=== PATIENT | female | born 1945 | race Caucasian/White ===

== ENCOUNTER 2019-04-29 07:30 | Inpatient (IN) | payer MEDICARE ==
--- NOTE | 2019-04-24 16:10 | HP ---
HISTORY AND PHYSICAL: DATE OF ADMISSION/SURGERY: 04/29/19 PROVIDER: Dr. Kezia Cotter.* (DICTATED BY JULIA CARROLL) HISTORY OF PRESENT ILLNESS: Ms. Buenrostro is a 74-year-old female scheduled for April right total knee arthroplasty. Today she reports 6/10 pain in the left knee. She states that she exacerbated her pain while circuit training in [place]. She has then been noticing a sharp stabbing pain along the posterior medial joint line. This pain is increased with prolonged ambulation, twisting, pivoting, and squatting. She has throbbing pain at night. There is swelling in the knee. She has failed conservative management with meloxicam, which does not help her pain. She would like to proceed with her total knee arthroplasty, but would like this worked up today. PAST MEDICAL HISTORY: 1. Hypertension. 2. Hypercholesterolemia. PAST SURGICAL HISTORY: Bilateral ulnar shortening surgery. MEDICATIONS: 1. Shingrix 50 mcg intramuscular one time, then repeat in 4 months. 2. Losartan potassium 25 mg, take 2 tablets by mouth once daily. 3. Simvastatin 20 mg once a day. 4. Fish oil daily. 5. Calcium. 6. Naproxen p.r.n. ALLERGIES: ADHESIVE TAPE causes itching. FAMILY HISTORY: Diabetes and cancer. SOCIAL HISTORY: The patient lives with her staff. She is retired. No recreational drugs or tobacco use. Six alcoholic beverages per week. Normally very active and an independent ambulator. REVIEW OF SYSTEMS: General: The patient denies any fevers, chills, or night sweats. No known anesthesia problems. HEENT: The patient denies any headaches or lightheadedness. Cardiothoracic: The patient denies any chest pain or heart palpitations. Pulmonary: The patient denies any shortness of breath with exertion or chronic cough. GI: The patient denies any nausea, vomiting, diarrhea, or constipation. : The patient denies any nocturia, urinary frequency, or urgency. Musculoskeletal: The patient denies any chronic or new back pain or fractures. Neuro: The patient denies any paresthesias, numbness, or seizures. Integumentary: The patient denies any abrasions, lesions , rashes, lumps. PHYSICAL EXAMINATION GENERAL: The patient is alert and oriented x3. Appropriate mood and affect. Appropriate dress and hygiene. No acute distress. HEENT: Normocephalic, atraumatic. Hearing and vision are grossly intact. PULMONARY: Lungs are clear to auscultation bilaterally with no wheezes, rales, or rhonchi. CARDIO: Regular rate and rhythm. Normal S1 and S2. No appreciable S3 or S4. MUSCULOSKELETAL: Right lower extremity: The patient's skin is intact with no abrasions or open wounds. No erythema or ecchymosis present. She has moderate effusion about the knee joint. Tenderness along the medial joint line. 5 to 120 degrees of flexion at the knee with no varus or valgus instability, no anterior and posterior instability. She is neurovascularly intact distally. IMPRESSION: Right knee end-stage osteoarthritis. PLAN: 1. To the OR for a right total knee arthroplasty to be performed on 04/29/[address] Kezia Cotter. 2. The patient will follow up 10 to 14 days postoperatively for suture removal. 3. The risks and complications were reviewed with the patient and she understood. A signed consent can be found in the chart. JULIA CARROLL [id number]/[facility] #: [id number] PAULINE
[~2019-04-29 07:30] MED LIST: Buffered Lidocaine 1% SYRIN* 1 ML/SYRINGE INTRADERM ONE; Lactated Ringers 1000 ML Bag* 1,000 ML IV SCH; Tranexamic Acid 1,000 MG in NS 0.9% 50 ML* (outpatient use) IV SCH
[2019-04-29] MEDS ORDERED: ceFAZolin 2 GM in NS PREMIX(*) 2 GM/100 ML BAG IVPB ONE (11:38)
[2019-04-29] MEDS ORDERED: Midazolam* 1 MG/ML 5 ML VIAL (5 MG) ONE (12:27)
[2019-04-29] MEDS ORDERED: fentaNYL* 50 MCG/ML 2 ML VIAL (100 MCG VIAL) ONE (12:27)
[2019-04-29] MEDS ORDERED: ROPIVACAINE 5 MG/ML 30 ML BTL (0.5%) ONE ×2 (13:16→13:19)
[2019-04-29] MEDS ORDERED: Propofol* 10 MG/ML 20 ML BTL ONE (13:51)
[2019-04-29] MEDS ORDERED: EPHEDrine (Pressors)* 50 MG/ML VIAL ONE (14:19)
[2019-04-29] MEDS ORDERED: HYDROcodone/ACETAMIN 5-325 MG* 1 TAB PO PRN (15:31)
[2019-04-29] MEDS ORDERED: Naloxone* 0.4 MG/ML 1 ML VIAL IV PRN (15:31)
[2019-04-29] MEDS ORDERED: HYDROmorphone INJ1* 1 MG/ML SYRINGE IV PRN (15:31)
[2019-04-29] MEDS ORDERED: Ondansetron INJ* 2 MG/ML VIAL IV PRN ×2 (15:31→16:02)
[2019-04-29] MEDS ORDERED: Temazepam CAP* 15 MG PO PRN (16:02)
[2019-04-29] MEDS ORDERED: diPHENhydraMINE PO* 25 MG PO PRN (16:02)
[2019-04-29] MEDS ORDERED: diPHENhydraMINE IV* 50 MG/ML 1 ml VIAL (BENADRYL) IV PRN (16:02)
[2019-04-29] MEDS ORDERED: Morphine INJ* 2 MG/ML 1 ML SYRINGE (TWO MG - NEW SYRINGE VERSION) IV PRN (16:02)
[2019-04-29] MEDS ORDERED: Magnesium Hydroxide LIQ* 30 ML UDC PO PRN (16:02)
[2019-04-29] MEDS ORDERED: Polyethylene Glycol 3350* 17 GM PACKET PO PRN (16:02)
--- NOTE | 2019-04-29 17:54 | OP ---
Operative Report - Blank - Operative Report Date of Operation: 04/29/19 Note: GRETA KELLY 1945 Date of Surgery: 04/29/19 Kezia Cotter MD [employer] Custodian: Agata DUMONT did help throughout the procedure with preparation of the knee, wound retraction, manipulation of the knee, and wound closure. Anesthesiologist: Dr. krishna Anesthesia Type: Spinal Preoperative Diagnosis: Right severe degenerative osteoarthritis of the knee Postoperative Diagnosis: As above Procedure Performed: Right Total Knee Arthroplasty Tourniquet time: 39 minutes Complications: None Specimen: Bone and cartilage from the right knee joint sent to pathology. Hardware Used: Cemented Rangel [employer] Nephew total knee hardware was used - For the femur a size 5 right narrow legion posterior stabilized femoral component, for the tibia a size 3 right louise II tibial baseplate, for the insert a size 9mm 3-4 posterior stabilized articular polyethylene insert, and for the patella a size 29 3-peg all poly patella. Brief History/Indication: GRETA KELLY was known in clinic and had a history of severe right knee pain and swelling. She failed conservative treatment with anti-inflammatories, pain pills, intra-articular injections and physical therapy. She elected to undergo right total knee arthroplasty due to continued pain and decreased quality of life. Radiographs showed severe end stage osteoarthritis of the knee with bone on bone contact. Informed consent was obtained from the patient. She understood the risks of surgery included but were not limited to: bleeding, infection, damage to nearby structures, intraoperative fracture, nerve palsy, failure of the hardware, early loosening, knee stiffness or loss of motion, anesthesia complications, stroke, heart attack , blood clot and . She wished to proceed. Intra-Operative Findings: Intraoperatively the patient was noted to have severe loss of cartilage in all 3 compartments of the knee. Description of the Procedure: GRETA KELLY was identified in the preanesthesia unit. Her right knee was marked as the correct operative side. Informed consent was signed and placed in the chart. The patient was taken to the operating room and placed under anesthesia without complication. A paulino catheter was placed. A tourniquet was placed on the right thigh. The right lower extremity was prepped and draped in the usual sterile fashion. Preoperative time-out was made to correctly identify the patient, side and site. Appropriate intraoperative antibiotics were given within one hour of incision. Tourniquet was inflated. A midline incision was made and carried sharply down to the extensor mechanism. A new 10 blade was used to make a standard medial parapatellar arthrotomy. The patella was subluxed laterally. Electrocautery was used to dissect soft tissue off the superomedial tibia to the midsagittal plane. The knee was flexed up. The anterior horn of the lateral meniscus and the ACL were sharply incised. A drill was used to enter the distal femur. The intramedullary distal femoral cutting guide was pinned on the distal femur. The oscillating saw was used to make the distal femoral cut. The external rotation guide was pinned on the distal femur and the distal femur was sized to a size 5. The size 5 multi-cutting jig was pinned on the distal femur. The oscillating saw was used to make the appropriate 4 chamfer cuts. Next the PCL was completely released. The extramedullary tibial cutting guide was pinned on the proximal tibia and the oscillating saw was used to make the proximal tibial cut perpendicular to the mechanical axis of the tibia. The bone was carefully removed. The knee was brought out into full extension. The spacer block was placed and had excellent fit with the knee in full extension. The medial and lateral ligaments were well balanced. The flexion and extension gaps were well balanced. The knee was flexed up. Lamina information systems security developer was placed both medially and laterally. Any remaining meniscus was removed with electrocautery. Curved osteotome was used to remove any posterior osteophytes. The tibial tray and drop yessenia were placed and confirmed a satisfactory tibial cut. The size 5 right narrow femoral trial was impacted onto the distal femur. This trial had excellent fit and stability. The box for the posterior stabilized implant was prepared using a box cut osteotome and a reamer. Next a tibial tray trial and 9 mm insert trial was placed. The knee was taken through a range of motion and had full extension to 130 degrees of flexion. Patellofemoral tracking was satisfactory. The patella was inverted and sized to a size 29. Three peg holes were drilled through the size 29 drill guide. The trial patella was placed and the knee was taken through a range of motion. There was satisfactory patellofemoral tracking. All trials were removed. The tibia was subluxed anteriorly and sized to a size 3. The proximal tibial was prepared with a size 3 keel punch. All bony cut surfaces were irrigated with sterile saline and dried. Final implants were cemented into place starting with the tibia, followed by the femur, and last the patella. A 9 mm insert trial was placed and the knee was brought into full extension. Tourniquet was turned down and the knee was copiously irrigated with sterile saline. Electrocautery was used to obtain meticulous hemostasis. Once the cement had fully cured, the insert trial was removed. Any excess cement was removed from around the hardware and capsule. Final insert chosen was a 9 mm posterior stabilized Louise II articular insert size 3-4. Stability of the insert was checked and noted to be stable. The extensor mechanism was closed using number 1 vicryls. The rest of the incision was closed in a layered fashion using 0 and 2-0 vicryls. The skin was closed using 3-0 nylon suture. Sterile xeroform, 4x4s and webril were used to cover the incision. Umair wrap and cold pack were used to cover the dressings. The patients anesthesia was reversed without difficulty. She was taken to the PACU in stable condition. Intended weight-bearing will be as tolerated.
[2019-04-29] MEDS ORDERED: oxyCODONE/Acetamin 5/325 MG* TAB ONE (20:20)
[2019-04-29] MEDS: Lactated Ringers 1000 ML Bag* 1,000 ML IV SCH (20:22)
[2019-04-29] MEDS: oxyCODONE/Acetamin 5/325 MG* TAB PO PRN (20:22)
[2019-04-29] MEDS: Ondansetron ODT TAB* 4 MG PO PRN (21:28)
[2019-04-29] MEDS: Magnesium Hydroxide LIQ* 30 ML UDC PO SCH (21:29)
[2019-04-29] MEDS: Docusate CAP* 100 MG PO SCH (21:29)
[2019-04-29] MEDS: Acetaminophen TAB* 325 MG PO SCH (21:29)
[2019-04-29] MEDS: Losartan TAB* 25 MG PO SCH (22:23)
[2019-04-29] MEDS: ceFAZolin 1 GM ADVAN(*) 1 GM in NS 0.9% 50 ML* 50 ML IVPB SCH (22:23)
[2019-04-29] MEDS: Atorvastatin* 10 MG TAB PO SCH (22:23)
[2019-04-29] MEDS: oxyCODONE TAB* 5 MG TAB PO PRN (22:23)
[2019-04-30] MEDS: Cyclobenzaprine TAB* 10 MG PO PRN (00:59)
[2019-04-30] MEDS: oxyCODONE TAB* 5 MG TAB PO PRN ×4 (02:22→22:04)
[2019-04-30] MEDS: Acetaminophen TAB* 325 MG PO SCH ×3 (05:52→23:05)
[2019-04-30] MEDS: ceFAZolin 1 GM ADVAN(*) 1 GM in NS 0.9% 50 ML* 50 ML IVPB SCH ×2 (05:56→14:20)
[2019-04-30 06:04] LABS: Hematocrit 35 % (35-47); Hemoglobin 11.7 g/dL (12.0-16.0); Mean Platelet Volume 8.8 fL (7.4-10.4); Platelet Count 222 10^3/uL (150-450)
[2019-04-30 06:22] LABS: Calcium 8.2 mg/dL (8.6-10.3); EGFR African American 112.4 (>60); EGFR Non-African American 92.9 (>60); Potassium 3.9 mmol/L (3.5-5.0)
[2019-04-30] MEDS: Lactated Ringers 1000 ML Bag* 1,000 ML IV SCH (07:29)
[2019-04-30] MEDS: Ondansetron ODT TAB* 4 MG PO PRN (07:34)
[2019-04-30] MEDS: Magnesium Hydroxide LIQ* 30 ML UDC PO SCH ×2 (08:37→20:08)
[2019-04-30] MEDS: Docusate CAP* 100 MG PO SCH ×2 (08:39→20:08)
[2019-04-30] MEDS: oxyCODONE/Acetamin 5/325 MG* TAB PO PRN ×4 (08:39→23:57)
[2019-04-30] MEDS: Apixaban* 2.5 MG TAB PO SCH ×2 (08:39→20:08)
[2019-04-30] MEDS: Vitamin THERAPEUTIC TAB PO SCH (08:39)
[2019-04-30] MEDS ORDERED: Metoclopramide TAB* 10 MG PO PRN (09:38)
--- NOTE | 2019-04-30 10:56 | PN ---
Progress Note - Progress Note Date of Service: 04/30/19 Note: POD 1 s/p right TKA: patient working with PT and then in joint chair. She has pain with movement and was unsteady with PT despite 2 person assist. She has nausea that is uncontrolled with Zofran. She denies SOB, CP or dizziness. +DF/ PF with intact sensation and 2+ DP pulse. Patient encouraged to use pain medication in order to participate in PT. I will add Reglan for nausea. Continue pain management and we appreciate medicine's guidance. We will monitor and hope for d/c tomorrow.
[2019-04-30] MEDS ORDERED: Scopolamine 1.5 mg* PATCH TRANSDERM SCH (12:00)
[2019-04-30] MEDS: Losartan TAB* 25 MG PO SCH (20:07)
[2019-04-30] MEDS: Atorvastatin* 10 MG TAB PO SCH (20:08)
--- NOTE | 2019-04-30 21:13 | CONS ---
CC: Dr. Kezia Cotter [facility] MEDICINE CONSULTATION: DATE OF CONSULT: 04/30/19 REQUESTING PHYSICIAN ON CONSULT: Dr. Kezia Cotter. ATTENDING PHYSICIAN: Dr. Angela Alarcon. REASON FOR CONSULT: Co-medical management. HISTORY OF PRESENT ILLNESS: I will refer you to the history and physical by JULIA Horvath, for complete details, but in short, Ms. Buenrostro is a 74-year- old female with past medical history of hypertension and hyperlipidemia, who presented to [facility] [place] for an elective right total knee arthroplasty. She failed conservative management with pain medication and elected to proceed with surgery. The patient underwent a right total knee arthroplasty yesterday, tolerated the procedure well. This morning, the patient reports feeling generally well. She is having significant pain in the right knee up to 8/10 with movement and down to 3/10 at rest. Pain medications are helping. She does complain of nausea and is requesting a scopolamine patch as this has worked well for her in the past. Appetite is poor secondary to nausea and she did vomit dinner last night. Regarding her hypertension, the patient has been on losartan for quite some time, though within the last week, the dose was increased from 50 mg to 75 mg by the patient's primary care provider. She has been tolerating this new dose well without any concerns. PAST MEDICAL HISTORY: 1. Hypertension. 2. Hyperlipidemia. PAST SURGICAL HISTORY: Bilateral ulnar surgery. HOME MEDICATIONS: 1. Benadryl 25 mg p.o. at bedtime p.r.n. insomnia. 2. Losartan 75 mg p.o. at bedtime. 3. Multivitamin 1 tab p.o. at bedtime. 4. Simvastatin 20 mg p.o. at bedtime. 5. CoQ10 100 mg p.o. at bedtime. ALLERGIES: ADHESIVE TAPE. FAMILY HISTORY: Significant for diabetes and cancer. SOCIAL HISTORY: The patient denies any tobacco or recreational drug use. She reports approximately 6 alcoholic beverages per week. She lives at home with her , Edwin, who will be her surrogate decision maker in the event she is unable to make her own decisions. REVIEW OF SYSTEMS: Eleven-point review of systems was performed and all the pertinent positive and negative findings are in the HPI. All other systems are negative. PHYSICAL EXAM: Ms. Buenrostro is a well-developed, well-nourished, elderly white female, sitting in a chair, in no acute distress. She appears her stated age. Vitals Signs: Temp 98.0, heart rate 70, respiratory rate 16, oxygen saturation 90% on room air, blood pressure 152/67. HEENT: Head is atraumatic, normocephalic. Visual purcell are grossly intact. Extraocular movements are intact. Oral mucous membranes are moist. Neck: Trachea midline. Respiratory : Symmetrical chest expansion. No chest wall deformities. Lungs: Clear to auscultation throughout. No rhonchi, wheezes, or rubs. Cardiovascular: Regular rate and rhythm. S1 and S2 present. No murmurs, rubs, or gallops. No JVD. Extremities: Skin warm and smooth bilaterally. No edema. Abdomen: Soft , nontender to palpation. Bowel sounds normoactive throughout. Neuro: Awake, alert, and oriented x4. Moves all extremities. Skin: There is a surgical dressing intact to the right knee. LABORATORY DATA: Hemoglobin 11.7, hematocrit 35, platelets 222. Sodium 137, potassium 3.9, chloride 103, carbon dioxide 27, BUN 12, creatinine 0.63. Glucose 142. ASSESSMENT AND PLAN: Ms. Buenrostro is a 74-year-old female with past medical history of hypertension and hyperlipidemia, who presented to [facility] yesterday for an elective right total knee arthroplasty. Hospital Medicine will be consulting for: 1. Status post right total knee arthroplasty. Management per Ortho. 2. Hypertension. The patient was normotensive overnight with systolic pressures in the 110s to 120s, though has been hypertensive today with systolics in the 150s and 160s. I suspect that this is secondary to pain and I am hesitant to increase her losartan dosing at this point as this dose was recently changed and she was normotensive overnight. At this point, I would recommend continuing the patient on 75 mg daily. We can continue to reassess this and make any necessary changes prior to discharge if necessary. 3. Hyperlipidemia. Continue atorvastatin. 4. FEN: The patient does not require any fluid resuscitation or electrolyte repletion. She can have a regular diet. 5. Code status: The patient will be a full code. 6. DVT prophylaxis: Per Ortho. TIME SPENT: Approximately 40 minutes was spent on this consultation, greater than half of that time was spent [id number] with the patient and her obtaining my history, performing my physical exam, and reviewing the plan of care. This case has been reviewed with my attending, Dr. Alarcon, who is in agreement with the plan of care. Thank you for this consultation. We will continue to follow for blood pressure control. PHIL BRANDON, CARD TAPE CONVERTER OPERATOR [id number]/[facility] #: [id number] PAULINE
[2019-05-01] MEDS: oxyCODONE TAB* 5 MG TAB PO PRN (03:34)
[2019-05-01] MEDS: Acetaminophen TAB* 325 MG PO SCH ×3 (05:22→20:40)
[2019-05-01 05:53] LABS: Hematocrit 33 % (35-47); Hemoglobin 11.3 g/dL (12.0-16.0); Mean Platelet Volume 8.8 fL (7.4-10.4); Platelet Count 219 10^3/uL (150-450)
[2019-05-01] MEDS: Apixaban* 2.5 MG TAB PO SCH ×2 (08:23→20:37)
[2019-05-01] MEDS: Docusate CAP* 100 MG PO SCH ×2 (08:23→20:37)
[2019-05-01] MEDS: oxyCODONE/Acetamin 5/325 MG* TAB PO PRN ×3 (08:23→20:37)
[2019-05-01] MEDS: Vitamin THERAPEUTIC TAB PO SCH (08:23)
[2019-05-01] MEDS: Magnesium Hydroxide LIQ* 30 ML UDC PO SCH ×2 (08:23→20:37)
--- NOTE | 2019-05-01 10:51 | PN ---
Progress Note - Progress Note Date of Service: 05/01/19 SOAP: Subjective: [Pt reports doing better today than yesterday pain-cervantes. C/o some dizziness with doing stairs in PT. Otherwise feels ok. Denies CP, SOB, Nausea. Would like to wait until tomorrow to go home. No BM yet but passing gas.] Objective: [A and O x 3 - seated in chair, NAD R knee dressing changed, surgical wound benign. Distal gross motor, NV function intact. Calves soft, NT Vital Signs: Temp Pulse Resp BP Pulse Ox 97.9 F 76 18 141/64 88 05/01/19 08:38 05/01/19 08:38 05/01/19 08:38 05/01/19 08:38 05/01/19 08:38 Laboratory Results - last 24 hr 05/01/19 04:57 Hgb 11.3 L Hct 33 L Plt Count 219 MPV 8.8 ] Assessment: [s/p R TKA POD # 2] Plan: [PT/OT Percocet for pain Eliquis DVT prophylaxis Plan for D/C tomorrow]
[2019-05-01] MEDS ORDERED: Bisacodyl SUPP* 10 MG SUPP PR PRN (16:02)
[2019-05-01] MEDS: Losartan TAB* 25 MG PO SCH (20:37)
[2019-05-01] MEDS: Atorvastatin* 10 MG TAB PO SCH (20:37)
[2019-05-02] MEDS: Cyclobenzaprine TAB* 10 MG PO PRN (03:16)
[2019-05-02] MEDS: oxyCODONE/Acetamin 5/325 MG* TAB PO PRN ×2 (03:17→09:14)
[2019-05-02] MEDS: Acetaminophen TAB* 325 MG PO SCH (06:27)
[2019-05-02 06:37] LABS: Hematocrit 32 % (35-47); Hemoglobin 10.8 g/dL (12.0-16.0); Mean Platelet Volume 8.6 fL (7.4-10.4); Platelet Count 210 10^3/uL (150-450)
[2019-05-02] MEDS: Vitamin THERAPEUTIC TAB PO SCH (09:14)
[2019-05-02] MEDS: Magnesium Hydroxide LIQ* 30 ML UDC PO SCH (09:14)
[2019-05-02] MEDS: Docusate CAP* 100 MG PO SCH (09:14)
[2019-05-02] MEDS: Apixaban* 2.5 MG TAB PO SCH (09:14)
--- NOTE | 2019-05-02 09:47 | PN ---
Progress Note - Progress Note Date of Service: 05/02/19 SOAP: Subjective: [Pt reports doing well. No more dizziness since yesterday. Pain controlled with po meds. Feels ready to go home ] Objective: [A and O x 3, NAD. Seated in chair. at bedside R knee dressing C/D/I Distal gross motor, NV function intact. Calves soft, NT Vital Signs: Temp Pulse Resp BP Pulse Ox 98.3 F 83 14 151/65 90 05/02/19 07:15 05/02/19 07:15 05/02/19 09:14 05/02/19 07:15 05/02/19 07:15 Laboratory Results - last 24 hr 05/02/19 06:07 Hgb 10.8 L Hct 32 L Plt Count 210 MPV 8.6 ] Assessment: [s/p R TKA POD #3] Plan: [PT D/C pt home with services Tiff irving to [facility] F/U with Dr. Cotter in 2 weeks]
[2019-05-02 11:22] VITALS: BP 128/53
[2019-05-03] MEDS ORDERED: Scopolamine PATCH Remove* 1 NOTE MISC PATCH OFF SCH (12:00)
--- NOTE | 2019-05-03 23:24 | DS ---
DISCHARGE SUMMARY: DATE OF ADMISSION: 04/29/19 DATE OF DISCHARGE: 05/02/19 PROVIDER: Kezia Cotter MD * (DICTATED BY JULIA FREEMAN) ADMITTING DIAGNOSES: 1. Right knee osteoarthritis. 2. Hypertension. 3. Hypercholesterolemia. DISCHARGE DIAGNOSES: 1. Status post right total knee arthroplasty. 2. Hypertension. 3. Hypercholesterolemia. BRIEF HISTORY: Ms. Buenrostro is a 74-year-old female with severe degenerative osteoarthritis of her right knee. She failed conservative treatment measures and elected to undergo a right total knee arthroplasty on 04/29/[address] Cotter. HOSPITAL COURSE: Ms. Buenrostro was admitted to [facility] on . She underwent an uncomplicated right total knee arthroplasty. Postoperatively, she recovered on the short-stay surgical unit. Her Jurado catheter was removed on postoperative day 1 and she was able to urinate on her own. She advanced to a regular diet without difficulty and her pain was well controlled with Percocet. Her vital signs and labs remain stable and she was able to bear weight as tolerated on the right lower extremity. She advanced appropriately with physical therapy and occupational therapy. Her DVT prophylaxis was Eliquis 2.5 mg b.i.d. On postoperative day 3, she had a bowel movement. She was also at that time orthopedically and medically stable for discharge home with services. PHYSICAL EXAMINATION: General: On examination, the patient is noted to be calm and cooperative, in no acute distress. She is alert and oriented x3. Vital signs on day of discharge, temperature 98.3 degrees Fahrenheit, pulse rate 83, respiratory rate 18, blood pressure 151/65, O2 sat 98% on room air. Extremities: Examination of her right lower extremity demonstrates a dressing overlying the right knee, which is clean, dry, and intact. Her calf is soft and nontender. Distal neurovascular function and gross strength are intact. LABORATORY DATA ON DAY OF DISCHARGE: Hemoglobin 10.8, hematocrit 32. RADIOGRAPHS: Postoperative radiographs of the right knee demonstrated right total knee arthroplasty with satisfactory prosthesis placement and no acute bony abnormalities. DISCHARGE MEDICATIONS: 1. Losartan potassium 25 mg 2 tabs daily. 2. Shingrix 50 mcg intramuscularly 1 time and then repeat in 4 months. 3. Simvastatin 20 mg daily. 4. Fish oil daily. 5. Calcium daily. 6. Percocet 5/325 one to two tabs q.4 to 6 hours p.r.n. pain. 7. Eliquis 2.5 mg b.i.d. for 30 days. 8. Colace 100 mg t.i.d. p.r.n. constipation. CONDITION ON DISCHARGE: Stable. DISCHARGE INSTRUCTIONS: Ms. Buenrostro is a 74-year-old female postoperative day #3 status post right total knee arthroplasty, which was uncomplicated. She is orthopedically and medically stable to be discharged home with services. She will restart home medications. She will remain weightbearing as tolerated on the right lower extremity and have home physical therapy twice a day. She will take Percocet for pain control and Eliquis for DVT prevention. She will follow up in the office with Dr. Cotter in 10 to 14 days for incision check and suture removal. She was instructed to call Dr. Cotter or go immediately to the ER should she develop any new fever, chills, incision, pain, redness, or drainage. She was instructed to go to immediately to the ER should she develop chest pain or shortness of breath. JULIA FREEMAN [id number]/[facility] #: [id number] [facility]PITALRad[facility]
== END 2019-05-02 13:00 | disposition home health service (06) | DRG 470 ==
LOC: AA 11:19 → SSU 19:47
PROVIDERS: ADMIT Orthopaedic Surgery Adult Reconstructive Orthopaedic Surgery; ATTEND Orthopaedic Surgery Adult Reconstructive Orthopaedic Surgery
PROC: 0SRC0J9 Replacement of Right Knee Joint with Synthetic Substitute, Cemented, Open Approach (ICD-10-PCS; principal; 2019-04-29 14:15)
DX: M17.11 Unilateral primary osteoarthritis, right knee (principal); I10 Essential (primary) hypertension; E78.00 Pure hypercholesterolemia, unspecified; E78.5 Hyperlipidemia, unspecified; M25.761 Osteophyte, right knee; Z79.899 Other long term (current) drug therapy; Z91.048 Other nonmedicinal substance allergy status; Z83.3 Family history of diabetes mellitus; Z80.9 Family history of malignant neoplasm, unspecified
CPT/HCPCS: 36415; 80048; 85014; 85018; 85049; 88305; 88311; A9270-GY; C1776; G8978-GP-CJ; G8979-GP-CI; J0690; J2250; J2270; J2704; J2795; J3010

== ENCOUNTER 2019-07-29 10:50 | Day surgery (SDC) | payer MEDICARE ==
--- NOTE | 2019-07-16 09:18 | HP ---
HISTORY AND PHYSICAL: DATE OF SURGERY: 08/05/19 DATE OF OFFICE VISIT: 07/13/19 SURGEON: Kezia Cotter MD * (DICTATED BY JULIA KEENE) PROCEDURE: Manipulation under anesthesia, right total knee arthroplasty. CHIEF COMPLAINT: Stiffness to right knee. HISTORY OF PRESENT ILLNESS: Ms. Buenrostro is a 74-year-old female who underwent a right total knee arthroplasty. She has some stiffness secondary to scar formation and has elected to proceed with the manipulation under anesthesia. PAST MEDICAL HISTORY: 1. Hypertension. 2. High cholesterol. PAST SURGICAL HISTORY: 1. Right total knee arthroplasty. 2. Bilateral ulnar shortening. 3. Right knee arthroscopy. 4. Tonsillectomy. CURRENT MEDICATIONS: 1. Losartan 100 mg a day. 2. Simvastatin 20 mg a day. 3. Calcium. 4. Naproxen as needed. ALLERGIES: Tape. FAMILY HISTORY: Diabetes and cancer. SOCIAL HISTORY: She is a 74-year-old female. She lives with her . She does not smoke, use drugs or use alcohol. REVIEW OF SYSTEMS: A complete 14-point review of systems was reviewed with the patient. It was all negative and noncontributory. She denies a history of DVT , PE, hepatitis, HIV, or anesthesia problems. PHYSICAL EXAMINATION GENERAL: She is well developed, well nourished, in no acute distress. VITAL SIGNS: She stands 65 inches tall, weighs 185 pounds. Her blood pressure is 118/82, her heart rate is 91. HEENT: Normocephalic, atraumatic. NECK: Supple. No palpable lymph nodes. PULMONARY: The lungs are clear to auscultation bilaterally. CARDIO: Regular rate and rhythm. Strong S1, S2. ABDOMEN: Soft, nontender, nondistended. NEUROLOGICAL: She is alert and oriented x3. MUSCULOSKELETAL: Right lower extremity: The skin is intact. There is a well- healed anterior scar. There is a mild effusion. She has approximately 95 degrees of flexion. Her calf is soft, nontender. She is distally neurovascularly intact. ASSESSMENT AND PLAN: Ms. Buenrostro is a 74-year-old female who underwent a right total knee arthroplasty. She has some stiffness secondary to scar formation. She has elected to proceed with the manipulation under anesthesia of the right total knee arthroplasty. The procedure is scheduled for 08/05/[address] Cotter discussed the risks and benefits and she will follow with Dr. Cotter in 7 to 10 days after the surgery. JULIA KEENE [id number]/[facility] #: [id number] [facility]ITAL[facility]
[2019-07-29] MEDS ORDERED: ceFAZolin 2 GM PREMIX in ORs 2 GM/50 ML BAG ONE (11:18)
[2019-07-29] MEDS ORDERED: Buffered Lidocaine 1% SYRIN* 1 ML/SYRINGE INTRADERM ONE ×2 (11:25→11:33)
[2019-07-29] MEDS ORDERED: Naloxone* 0.4 MG/ML 1 ML VIAL IV PRN (11:34)
[2019-07-29] MEDS ORDERED: fentaNYL* 50 MCG/ML 2 ML VIAL (100 MCG VIAL) IV PRN (11:34)
[2019-07-29] MEDS ORDERED: DiMENhydriNATE IV* 50 MG/ML VIAL IV PUSH PRN (11:34)
[2019-07-29] MEDS ORDERED: Ondansetron INJ* 2 MG/ML VIAL IV PRN (11:34)
[2019-07-29] MEDS ORDERED: HYDROcodone/ACETAMIN 5-325 MG* 1 TAB PO PRN ×2 (11:34)
[2019-07-29] MEDS ORDERED: Acetaminophen TAB* 325 MG PO PRN (11:34)
[2019-07-29] MEDS ORDERED: diPHENhydraMINE IV* 50 MG/ML 1 ml VIAL (BENADRYL) IV PRN (11:34)
[2019-07-29] MEDS ORDERED: Famotidine IV* 10 MG/ML 2 ML (20 mg) ONE (11:36)
[2019-07-29] MEDS ORDERED: fentaNYL* 50 MCG/ML 2 ML VIAL (100 MCG VIAL) ONE (11:47)
[2019-07-29] MEDS ORDERED: Midazolam* 1 MG/ML 2 ML VIAL (2 MG) ONE (11:47)
[2019-07-29] MEDS ORDERED: KETAMINE HCL* 50 MG/ML 10 ML VIAL ONE (11:47)
[2019-07-29] MEDS ORDERED: Scopolamine 1.5 mg* PATCH ONE (11:48)
[2019-07-29] MEDS ORDERED: Lactated Ringers 1000 ML Bag* 1,000 ML IV SCH (12:00)
[2019-07-29] MEDS ORDERED: Dexamethasone IV* 4 MG/ML 1 ML (4 MG) ONE (12:48)
[2019-07-29] MEDS ORDERED: Propofol* 10 MG/ML 20 ML BTL ONE (12:48)
[2019-07-29] MEDS ORDERED: Ondansetron INJ* 2 MG/ML VIAL ONE (12:48)
[2019-07-29] MEDS ORDERED: Lidocaine 2% PF * 5 ML VIAL ONE (12:48)
[2019-07-29] MEDS ORDERED: Succinylcholine* 20 MG/ML 10 ML VIAL ONE (12:51)
[2019-07-29] MEDS ORDERED: Ketorolac INJ* 30 MG/ML 1 ML VIAL ONE (13:30)
[2019-07-29 14:39] VITALS: BP 144/91
--- NOTE | 2019-07-29 22:50 | OP ---
DATE OF OPERATION: 07/29/19 - [facility] DATE OF : 49 SURGEON: Kezia Cotter MD. ANESTHESIOLOGIST: Dr. Blankenship. ANESTHESIA: General. PRE-OP DIAGNOSIS: Arthrofibrosis and pain, right total knee arthroplasty secondary to stiffness. POST-OP DIAGNOSIS: Arthrofibrosis and pain, right total knee arthroplasty secondary to stiffness. OPERATIVE PROCEDURE: Manipulation under anesthesia of the right total knee arthroplasty. COMPLICATIONS: None. ESTIMATED BLOOD LOSS: None. SPECIMEN: None. BRIEF HISTORY/INDICATIONS: Ms. Buenrostro is a 74-year-old female who had a right total knee arthroplasty on 04/29/19. This was an uncomplicated surgery. Postoperatively, she has had slow progression of her flexion. She advanced to 95 degrees, but felt that she plateaued. She requested to have manipulation under anesthesia due to continued stiffness and lack of terminal flexion. Informed consent was obtained from the patient. She understood the risks of the surgery included but were not limited to bleeding, periprosthetic fracture, continued stiffness, need for further surgery, anesthesia complications, stroke , heart attack, blood clot, and . She wished to proceed. INTRAOPERATIVE FINDINGS: Intraoperatively, the patient was noted to have 3 to 90 degrees of flexion pre-procedure. She had significant scar tissue that was audibly and visibly broken during the procedure. Range of motion was improved from about 3 to 125 degrees of flexion. DESCRIPTION OF PROCEDURE: Ms. Buenrostro was identified in the preanesthesia unit. Her right lower extremity was marked as the correct operative site. Informed consent was signed and placed in the chart. The patient was taken to the operating room and placed under anesthesia . Preoperative time-out was made to correctly identify the patient side and site. Appropriate C-arm was available. Pre-procedure photographs of her range of motion was obtained and his showed about 3 degrees from full extension to 90 degrees of flexion. The knee was carefully flexed and extended. There was audible and palpable break up of scar tissue in the knee. The knee was flexed to approximately 130 degrees with some gentle pressure. Without pressure, flexion was at least to 125 degrees. Photographs of this were also obtained. C-arm use in both AP and lateral planes were obtained and showed no obvious periprosthetic fracture of the surrounding bone and implants. The patient's anesthesia was reversed without difficulty. He was taken to PACU in stable condition. Intended weightbearing will be weightbearing as tolerated. Intended DVT prophylaxis will be aspirin. [id number]/[facility] #: [id number] [facility]
== END 2019-07-29 14:30 | disposition home or self-care (01) ==
LOC: OR 10:50
PROVIDERS: ATTEND Orthopaedic Surgery Adult Reconstructive Orthopaedic Surgery
DX: T84.82XA Fibrosis due to internal orthopedic prosthetic devices, implants and grafts, initial encounter (principal); Z96.651 Presence of right artificial knee joint; M24.661 Ankylosis, right knee; I10 Essential (primary) hypertension; E78.00 Pure hypercholesterolemia, unspecified
CPT/HCPCS: 76000; A9270-GY; J0330; J0690; J1100; J1885; J2250; J2405; J2704; J3010